=== PATIENT | female | born 1985 | race Two or more races ===

== ENCOUNTER → 2016-09-07 | Outpatient (CLI) | payer BC ==
[~2016-09-07] MED LIST: IBUP-1222 PO; NONE PER PT; OXYC-302 PO
[2016-09-07 14:54] LABS: HEMOGLOBIN 11.6 g/dL (11.7-16.4)
[2016-09-07 15:06] LABS: ASPARTATE AMINO TRANSFERASE 26 U/L (15-37); BLOOD UREA NITROGEN 14 mg/dL (7-18)
== END | disposition home or self-care (01) ==
LOC: STAR 13:38
PROVIDERS: ATTEND Obstetrics & Gynecology Gynecology
DX: Z01.818 Encounter for other preprocedural examination (principal); Z30.2 Encounter for sterilization
CPT/HCPCS: 36415; 80053; 81001; 84703; 85025; 87086

== ENCOUNTER 2016-09-11 06:29 | Day surgery (SDC) | payer BC ==
[~2016-09-11] VITALS: Ht 165.1 cm; Wt 86.0 kg
[2016-09-11] MEDS ORDERED: LACTATED RINGERS 1,000 ML IV SCH (06:54)
[2016-09-11 07:05] VITALS: BP 106/74
[2016-09-11] MEDS ORDERED: BUPIVACAINE/PF-EPI 0.25% 1:200K ONE (07:12)
[2016-09-11] MEDS ORDERED: FENTANYL PF 250 MCG/5ML ONE (07:32)
[2016-09-11] MEDS ORDERED: DEXAMETHASONE 4 MG/ML, 1ML ONE (08:09)
[2016-09-11] MEDS ORDERED: GLYCOPYRROLATE 0.2MG/1ML ONE (08:09)
[2016-09-11] MEDS ORDERED: PROPOFOL 10 MG/ML, 20ML ONE (08:09)
[2016-09-11] MEDS ORDERED: ROCURONIUM 10 MG/ML ONE (08:09)
[2016-09-11] MEDS ORDERED: KETOROLAC 30 MG/1 ML ONE (08:09)
[2016-09-11] MEDS ORDERED: METOCLOPRAMIDE 5 MG/ML, 2ML ONE (08:09)
[2016-09-11] MEDS ORDERED: CEFAZOLIN 1,000 MG ONE (08:09)
[2016-09-11] MEDS ORDERED: ONDANSETRON 2MG/ML, 2ML ONE (08:09)
[2016-09-11] MEDS ORDERED: NEOSTIGMINE 1 MG/ML, 10ML ONE (08:09)
[2016-09-11] MEDS ORDERED: hydrALAzine 20 MG/ML, 1ML IV PRN (08:30)
[2016-09-11] MEDS ORDERED: HYDROmorphone 1 MG/ML, 1ML IV PRN (08:30)
[2016-09-11] MEDS ORDERED: LABETALOL 5MG/ML, 20ML IV PRN (08:30)
[2016-09-11] MEDS ORDERED: FENTANYL PF 100 MCG/2ML IV PRN (08:30)
[2016-09-11] MEDS ORDERED: PROMETHAZINE 25 MG/ML, 1ML IV PRN (08:30)
[2016-09-11] MEDS ORDERED: MIDAZOLAM 1 MG/ML, 2ML IV PRN (08:30)
[2016-09-11] MEDS ORDERED: OXYcodone 5 MG/5 ML ORAL.SOL UDC PO PRN (08:30)
[2016-09-11] MEDS ORDERED: ONDANSETRON 2MG/ML, 2ML IVPush PRN (08:30)
[2016-09-11] MEDS ORDERED: MEPERIDINE/PF 25MG/0.5ML IVPush PRN (08:30)
[2016-09-11] MEDS ORDERED: ACETAMINOPHEN 650 MG/20.3 ML UDC ONE (09:04)
[2016-09-11] MEDS ORDERED: OXYcodone 5 MG/5 ML ORAL.SOL UDC ONE (09:05)
[2016-09-11] MEDS ORDERED: MEPERIDINE/PF 25MG/0.5ML ONE (09:05)
[2016-09-11] MEDS ORDERED: ACETAMINOPHEN 650 MG/20.3 ML UDC PO PRN (09:30)
[2016-09-11] MEDS ORDERED: ACETAMINOPHEN 650 MG/20.3 ML UDC PO ONE (09:30)
[2016-09-11] MEDS ORDERED: OXYcodone/APAP 5/325MG TABLET ONE (15:02)
== END 2016-09-11 15:20 | disposition home or self-care (01) ==
LOC: OUT 06:29
PROVIDERS: ATTEND Obstetrics & Gynecology Gynecology
DX: Z30.2 Encounter for sterilization (principal); E66.9 Obesity, unspecified; Z68.31 Body mass index [BMI] 31.0-31.9, adult
CPT/HCPCS: 36415; 58670; 86850; 86900; J0690; J1100; J1885; J2175; J2405; J2704; J2710; J2765; J3010; J3490